=== PATIENT | female | born 1950 | race Caucasian/White ===

== ENCOUNTER 2020-02-16 12:49 | Outpatient (CLI) | payer MEDICARE, SELFPAY ==
[2020-02-16 13:10] VITALS: BP 112/73; PULSE 73; RESP 16; TEMP 36.6
[2020-02-16] MEDS: denosumab 60 mg SDV SUBCUT (13:15)
[2020-02-16 13:34] VITALS: BP 125/69; PULSE 69; RESP 16; TEMP 36.6
== END 2020-02-16 12:50 | disposition home or self-care (01) ==
LOC: RHEOACUTE 12:50
PROVIDERS: Family Provider Internal Medicine; PCP Internal Medicine; Visit Provider Internal Medicine Rheumatology
DX: M81.0 Age-related osteoporosis without current pathological fracture (principal)
CPT/HCPCS: 96372; J0897

== ENCOUNTER 2020-03-30 14:00 | Outpatient (CLI) | payer MEDICARE, SELFPAY ==
--- NOTE | 2020-03-30 14:08 | MM_ITS ---
WS: [id number] BILATERAL DIGITAL SCREENING MAMMOGRAPHY WITH CAD CLINICAL INFORMATION: SCREENING HISTORY: Screening mammogram. No current complaints. COMPARISON: 02/02/2019 and 01/21/2018 TECHNIQUE: Bilateral CC and MLO views. FINDINGS: Scattered fibroglandular densities bilaterally. No suspicious focal mass, asymmetry, calcifications, or architectural distortion. No evidence of malignancy. Punctate calcifications left breast. MM/[id number] IMPRESSION: BI-RADS: 2-Benign FOLLOW UP: 1 Year Follow-up Recommend return to annual screening mammography.
== END 2020-03-30 14:01 | disposition home or self-care (01) ==
PROVIDERS: PCP Internal Medicine; Visit Provider Internal Medicine
DX: Z12.31 Encounter for screening mammogram for malignant neoplasm of breast (principal)
CPT/HCPCS: 77067

== ENCOUNTER 2020-08-28 10:59 | Outpatient (CLI) | payer MEDICARE, SELFPAY ==
[2020-08-28 11:30] VITALS: BP 109/73; PULSE 71; RESP 16; TEMP 36.2; O2SAT 97
[2020-08-28] MEDS: denosumab 60 mg SDV SUBCUT (11:38)
[2020-08-28 11:40] VITALS: BMI 21.6
[2020-08-28 11:58] VITALS: BP 109/73; PULSE 70; RESP 16; O2SAT 98
== END 2020-08-28 11:00 | disposition home or self-care (01) ==
LOC: RHEOACUTE 11:00
PROVIDERS: PCP Internal Medicine; Visit Provider Internal Medicine Rheumatology
DX: M81.0 Age-related osteoporosis without current pathological fracture (principal)
CPT/HCPCS: 96372; J0897

== ENCOUNTER 2021-05-07 08:05 | Outpatient (CLI) | payer MEDICARE, SELFPAY ==
--- NOTE | 2021-05-07 08:11 | MM_ITS ---
WS: [id number] Exam: [id number] Date/Time of Exam: 05/07/2021 8:21 AM Reason For Exam: SCREENING VIEWS: MLO and CC views both breasts. Comparison made with prior exam of 01/08/2017, 01/21/2018, 02/02/2019, and 03/30/2020. Findings: There was no sign of mass, architectural distortion or suspicious calcification in either breast. Sc attered fibroglandular densities MM/[place] [id number] Impression: BI-RADS: 2-Benign FOLLOW-UP: 1 Year Follow-up This mammogram was also analyzed by the Computer Aided Detection System R2 [employer].
== END 2021-05-07 08:06 | disposition home or self-care (01) ==
PROVIDERS: PCP Internal Medicine; Visit Provider Internal Medicine
DX: Z12.31 Encounter for screening mammogram for malignant neoplasm of breast (principal)
CPT/HCPCS: 77067

== ENCOUNTER 2021-05-14 12:54 | Outpatient (CLI) | payer MEDICARE, SELFPAY ==
[2021-05-14 13:03] VITALS: BP 110/68; PULSE 74; RESP 18; TEMP 36.3; O2SAT 98
[2021-05-14] MEDS: denosumab 60 mg SDV SUBCUT (13:13)
== END 2021-05-14 12:55 | disposition home or self-care (01) ==
LOC: ONCMED 12:56
PROVIDERS: PCP Internal Medicine; Referring Provider Internal Medicine; Visit Provider Internal Medicine
DX: M81.0 Age-related osteoporosis without current pathological fracture (principal); Z79.899 Other long term (current) drug therapy
CPT/HCPCS: 96372; J0897

== ENCOUNTER 2021-11-25 11:58 | Outpatient (CLI) | payer MEDICARE, SELFPAY ==
[2021-11-25 12:17] VITALS: BP 113/75; PULSE 87; RESP 18; TEMP 36.9; O2SAT 98
[2021-11-25] MEDS: denosumab 60 mg SDV SUBCUT (12:25)
[2021-11-25 12:37] VITALS: BP 104/70; PULSE 88; RESP 18; TEMP 36.9; O2SAT 96
== END 2021-11-25 11:59 | disposition home or self-care (01) ==
PROVIDERS: PCP Internal Medicine; Referring Provider Internal Medicine; Visit Provider Internal Medicine
DX: M81.0 Age-related osteoporosis without current pathological fracture (principal)
CPT/HCPCS: 96372; J0897

== ENCOUNTER 2022-05-26 11:03 | Outpatient (CLI) | payer MEDICARE, SELFPAY ==
[2022-05-26 11:07] VITALS: BP 110/76; PULSE 87; RESP 18; TEMP 36.8; O2SAT 97
[2022-05-26] MEDS: denosumab 60 mg SDV SUBCUT (11:20)
[2022-05-26 11:26] VITALS: BP 113/74; PULSE 80; RESP 18; TEMP 36.5; O2SAT 95
== END 2022-05-26 11:04 | disposition home or self-care (01) ==
PROVIDERS: PCP Internal Medicine; Visit Provider Internal Medicine
DX: M81.0 Age-related osteoporosis without current pathological fracture (principal)
CPT/HCPCS: 96372; J0897

== ENCOUNTER 2022-07-04 11:48 | Outpatient (CLI) | payer MEDICARE, SELFPAY ==
--- NOTE | 2022-07-04 11:56 | MM_ITS ---
WS: [id number] BILATERAL SCREENING DIGITAL TOMOSYNTHESIS MAMMOGRAM WITH CAD HISTORY: SCREENING COMPARISON: 05/07/2021, 03/30/2020 and 02/02/2019 Bilateral CC and MLO views with tomosynthesis and synthetic mammography submitted. Computer aided det ection analyzed. Breast composition: There are scattered areas of fibroglandular density. No suspicious masses, microc alcifications or architectural distortion. Asymmetries within each breast are stable over multiple pr ior years. MM/[place] [id number] IMPRESSION: BI-RADS: 2-Benign FOLLOW UP: 1 Year Follow-up
== END 2022-07-04 11:49 | disposition home or self-care (01) ==
LOC: RAD 11:49
PROVIDERS: PCP Internal Medicine; Visit Provider Internal Medicine
DX: Z12.31 Encounter for screening mammogram for malignant neoplasm of breast (principal)
CPT/HCPCS: 77063; 77067

== ENCOUNTER 2022-07-18 11:00 | Outpatient (CLI) | payer MEDICARE, SELFPAY ==
--- NOTE | 2022-07-18 11:07 | MR_ITS ---
WS: [id number] MRI BRAIN WITHOUT CONTRAST HISTORY: NEW ONSET HEADACHE COMPARISON: None available. TECHNIQUE: Diffusion imaging, multiplanar T1, T2 and FLAIR imaging obtained. No evidence for acute infarct or hemorrhage. Suarez-white matter differentiation is normal. Mild atroph y. No prior infarct. Hyperintense T2 foci in the subcortical white matter predominantly in the frontal l obes. Ventricles and extra-axial spaces are normal. No inferior displacement of cerebellar tonsils. The sella turcica and pituitary gland are unremarkabl e. Dural venous sinuses and chitina of [place] demonstrate no abnormality on this unenhanced studies. Paranasal sinuses: Clear. Mastoid air cells: Normal. Calvarium and scalp: Intact. MR/MR head wo con* [id number] IMPRESSION: 1. Normal diffusion imaging. No evidence for an acute infarct. 2. Very mild atrophy and subcortical lesions in the frontal lobes. This can be seen with small vessel ischemic disease or migraines.
== END 2022-07-18 11:01 | disposition home or self-care (01) ==
LOC: RAD 11:03
PROVIDERS: PCP Internal Medicine; Visit Provider Internal Medicine
DX: R51.9 Headache, unspecified (principal); G31.89 Other specified degenerative diseases of nervous system
CPT/HCPCS: 70551

== ENCOUNTER 2022-12-02 08:50 | Outpatient (CLI) | payer MEDICARE, SELFPAY ==
[2022-12-02 09:01] VITALS: BP 127/75; PULSE 97; RESP 18; TEMP 36.3; O2SAT 98
[2022-12-02] MEDS: denosumab 60 mg SDV SUBCUT (09:07)
[2022-12-02 09:13] VITALS: BP 139/79; PULSE 90; RESP 18; TEMP 36.3; O2SAT 98
== END 2022-12-02 08:51 | disposition home or self-care (01) ==
LOC: ONCMED 08:51
PROVIDERS: PCP Internal Medicine; Visit Provider Internal Medicine
DX: M81.0 Age-related osteoporosis without current pathological fracture (principal)
CPT/HCPCS: 96372; J0897

== ENCOUNTER 2023-07-08 08:40 | Outpatient (CLI) | payer MEDICARE, SELFPAY ==
--- NOTE | 2023-07-08 08:47 | MM_ITS ---
WS: [id number] BILATERAL SCREENING DIGITAL TOMOSYNTHESIS MAMMOGRAM WITH CAD HISTORY: SCREENING COMPARISON: 07/04/2022, 05/07/2021 Bilateral CC and MLO views with tomosynthesis and synthetic mammography submitted. Computer aided det ection analyzed. Breast composition: There are scattered areas of fibroglandular density. No suspicious masses, microc alcifications or architectural distortion. Asymmetries in the anterior portion of each breast are sta ble. Benign calcification LEFT breast. IMPRESSION: MM/[place] [id number] BI-RADS: 2-Benign FOLLOW UP: 1 Year Follow-up
== END 2023-07-08 08:41 | disposition home or self-care (01) ==
PROVIDERS: PCP Internal Medicine; Visit Provider Internal Medicine
DX: Z12.31 Encounter for screening mammogram for malignant neoplasm of breast (principal)
CPT/HCPCS: 77063; 77067

== ENCOUNTER 2023-07-10 08:32 | Oncology outpatient (recurring) (ONCR) | payer MEDICARE, SELFPAY ==
[2023-07-10] MEDS: denosumab 60 mg SDV SUBCUT (08:46)
[2023-07-10 08:48] VITALS: BP 126/80; PULSE 84; RESP 16; TEMP 36.2; O2SAT 98
== END 2023-07-11 23:59 | disposition home or self-care (01) ==
PROVIDERS: PCP Internal Medicine; Visit Provider Internal Medicine
DX: M81.0 Age-related osteoporosis without current pathological fracture (principal)
CPT/HCPCS: 96372; J0897

== ENCOUNTER 2024-02-08 14:49 | Outpatient (CLI) | payer MEDICARE, SELFPAY ==
--- NOTE | 2024-02-08 14:56 | CTR_ITS ---
PROCEDURE INFORMATION: Exam: CT Abdomen And Pelvis With Contrast Exam date and time: 02/08/2024 3:47 PM Age: 73 years old Clinical indication: Prior surgery; Surgery date: 6+ months; Surgery type: Hysterectomy; Patient HX: Acute lower abdominal pain x 5 days with diarrhea today; Additional info: Acute abdominal pain, stat TECHNIQUE: Imaging protocol: Computed tomography of the abdomen and pelvis with contrast. Radiation optimization: All CT scans at this facility use at least one of these dose optimization techniques: automated exposure control; mA and/or kV adjustment per patient size (includes targeted exams where dose is matched to clinical indication); or iterative reconstruction. Contrast material: OMNIPAQUE 350; Contrast volume: 100 ml; Contrast route: INTRAVENOUS (IV); COMPARISON: No relevant prior studies available. RADIATION DOSE METRICS: Total DLP (mGy-cm): 344.5 FINDINGS: Lungs: Lung bases are clear. Diaphragm: There is a moderate size sliding-type hiatal hernia. Liver: The liver is normal. Gallbladder and bile ducts: The gallbladder is normal. There is no biliary dilation. Pancreas: There is mild atrophy of the pancreas. Spleen: The spleen is unremarkable. Adrenal glands: The adrenal glands are unremarkable. Kidneys and ureters: The kidneys are unremarkable. No hydronephrosis or stones. No ureteral dilation. Stomach and bowel: The stomach is nondistended, limiting assessment of wall thickness. The small bowel is nondilated. There is mild sigmoid colonic diverticulosis without evidence of diverticulitis. Appendix: The appendix is not visible. Intraperitoneal space: There is no free air or significant intraperitoneal free fluid. Vasculature: There may be hemodynamically significant stenosis of the celiac artery origin. There is moderate aortic atherosclerotic disease. The portal, splenic and superior mesenteric veins are patent. Lymph nodes: There is no lymphadenopathy in the retroperitoneum, mesentery, pelvis or inguinal regions. Urinary bladder: The urinary bladder is unremarkable. Reproductive: The uterus is absent. There is no adnexal mass or large cyst. Bones/joints: There is focal thoracolumbar kyphosis and inferior endplate compression deformity of T12 of indeterminate age. No acute features are seen. There is mild degenerative disease in the lower lumbar spine. The pelvis and hips are unremarkable. Soft tissues: The abdominal wall is intact. CT/CT abdomen pelvis w con* [id number] IMPRESSION: 1. No acute findings. 2. Incidental findings above.
[2024-02-08 15:44] LABS: Blood Urea Nitrogen 7 mg/dL (8-23)
[2024-02-08] MEDS: iohexol 350 mg/mL 500 mL Btl (per mL) IV (15:51)
== END 2024-02-08 14:50 | disposition home or self-care (01) ==
LOC: RAD 14:50
PROVIDERS: Radiology Diagnostic Radiology; PCP Internal Medicine; Visit Provider Internal Medicine
DX: R10.9 Unspecified abdominal pain (principal)
CPT/HCPCS: 74177; 82565; 84520; Q9967

== ENCOUNTER 2024-02-13 18:30 | Emergency (ER) | payer MEDICARE, SELFPAY ==
[2024-02-13 18:35] VITALS: BP 156/78; PULSE 90; RESP 17; TEMP 36.6; O2SAT 95; BMI 22.8
--- NOTE | 2024-02-13 20:16 | ED_ITS ---
HPI - Abdominal Pain 2 General: Chief Complaint: Abdominal Pain Stated Complaint: Bloody Diahrea Time Seen by Provider: 02/13/24 20:07 History of Present Illness: 73-year-old female who complains of a we ek of mucousy stool with blood, and diarrhea along with generalized abdominal pain. She was evidently seen by her PCP earlier in the week and had a CAT scan. She complains of continued pain and other symptoms. Associated Symptoms: Reports diarrhea, hematochezia and nausea; Denies fever(s), melena and vomiting Review of Systems 2 Const: Denies: fever(s) ENMT: Denies: throat pain Card: Denies: chest pain Resp: Denies: dyspnea GI: Reports: abdominal pain, nausea, diarrhea and hematochezia; Denies: vomiting or melena Physical Exam 2 Const: COMMON NORMALS: no acute distress GENERAL APPEARANCE: cooperative; not ill appearing and not frail appearing HENMT: COMMON NORMALS: normocephalic, atraumatic and Normal external nose present HEAD & SCALP: normocephalic and atraumatic FACE & SINUS: normal facial exam and face symmetric NOSE: Normal external nose present Eye: COMMON NORMALS: Equal, round and reactive pupils present and EOMs intact bilaterally PUPIL: Yes Equal, round and reactive pupils present Neck/C-Spine: GENERAL: Yes trachea midline Chest: CHEST: Yes Symmetrical chest wall rise Resp: COMMON NORMALS: normal respiratory effort, No retractions, No use of accessory muscles and clear to auscultation bilaterally AUSCULTATION: clear to auscultation bilaterally Cardio: COMMON NORMALS: regular rate and regular rhythm RATE: regular rate RHYTHM: regular rhythm GI: COMMON NORMALS: Normal to inspection, nondistended, normoactive bowel sounds present and Soft to palpation PALPATION: Yes Soft to palpation and Yes Tenderness to palpation present (GI) (generalized) Extremity: COMMON NORMALS: no pedal edema Neuro: AMAIRANI COMA SCALE: document GCS findings Amairani coma scale eye opening: Spontaneous Amairani coma scale verbal response: Orientated Mora coma scale motor response: Obey commands Amairani coma scale total score: 15 S ENSORY EXAM: Yes extremities (intact) Psych: COMMON NORMALS: speech normal SPEECH: Yes normal speech Skin: COMMON NORMALS: no rashes or lesions noted GENERAL SKIN EXAM: no rashes or lesions noted Course 2 Vital Signs: Vital signs: Vital Signs Temperature 97.8 F 02/13/24 18:35 Pulse Rate 73 02/14/24 00:32 Respiratory Rate 18 02/14/24 00:32 Blood Pressure 155/77 02/14/24 00:32 Pulse Oximetry 95 02/14/24 00:32 Oxygen Delivery Me thod Room Air 02/14/24 00:31 MDM - Abdominal Pain Medical Decision Making Vitals are stable period white blood cell count is 13. Hemoglobin is 14. Doubtful she has lost much blood. Lactic acid is 0.8. CRP, however, is 29. With history of blood, and elevated inflammatory markers, CT was ordered. It shows no acute findings. She may have antibiotic associated diarrhea, as she was placed on augmentin for a couple of days. We will place her on flagyl, steroids given here for inflammatory changes, and symptomatic treatment. She knows to return for worsening symptoms. Lab Data 02/13/24 20:31 02/13/24 21:06 Labs/Radiology: Radiology Impressions Abdomen/Pelvis CT 02/13/24 21:26 IMPRESSION: 1. No bowel obstruction or inflammatory process associated with the bowel. 2. No free air or significant free fluid in the abdomen or pelvis. 3. No evidence of appendicitis. Laboratory Results WBC 12.79 10^3/uL (3.29-11.43) H 02/13/24 20:31 RBC 5.02 10^6/uL (3.85-5.65) 02/13/24 20:31 Hgb 14.30 g/dL (11.27-16.99) 02/13/24 20:31 Hct 41.7 % (36-47) 02/13/24 20:31 MCV 83.1 fl (85-98) L 02/13/24 20:31 MCH 28.5 pg (27-33) 02/13/24 20:31 MCHC 34.3 g/dL (30-55) 02/13/24 20:31 RDW 12.1 % (12.1-15.1) 02/13/24 20:31 Plt Count 214 10^3/cmm (157-399) 02/13/24 20:31 MPV 10.0 fL (7.4-10.4) 02/13/24 20:31 Neut % (Auto) 79.0 % 02/13/24 20:31 Lymph % (Auto) 11.3 % 02/13/24 20:31 Swain % (Auto) 7.3 % 02/13/24 20: Eos % (Auto) 1.4 % 02/13/24 20:31 Baso % (Auto) 0.7 % 02/13/24 20:31 Neut # (Auto) 10.09 10^3/uL (1.8-7.7) H 02/13/24 20:31 Lymph # (Auto) 1.5 10^3/uL (0.8-4.8) 02/13/24 20: Swain # (Auto) 0.9 10^3/uL (0.2-0.9) 02/13/24 20: Eos # (Auto) 0.2 10^3/uL (0.0-0.8) 02/13/24 20: Baso # (Auto) 0.1 10^3/uL (0.0-0.1) 02/13/24 20: Nucleated RBC % (auto) 0 % 02/13/24 20: Nucleated RBCs # 0.0 /100WBC 02/13/24 20: Sodium 130 mmol/L (136-145) L 02/13/24 21:06 Potassium 4.0 mmol/L (3.5-5.1) 02/13/24 21:06 Chloride 95 mmol/L (98-107) L 02/13/24 21:06 Carbon Dioxide 25 mmol/L (22-29) 02/13/24 21:06 Anion Gap 14.0 (5-19) 02/13/24 21:06 BUN 9 mg/dL (8-23) 02/13/24 21:06 Creatinine 0.6 mg/dL (0.5-0.9) 02/13/24 21:06 GFR Calculation Not Reportable 02/13/24 21:06 Glucose 108 mg/dL (65-115) 02/13/24 21:06 Calculated Osmolality 269 mOsm/kg (285-295) L 02/13/24 21:06 Lactic Acid 0.8 mmol/L (0.5-2.2) 02/13/24 21:06 Calcium 9.3 mg/dL (8.5-10.5) 02/13/24 21:06 Total Bilirubin 0.3 mg/dL (0.15-1.2) 02/13/24 21:06 AST 18 U/L (0-32) 02/13/24 21:06 ALT 35 U/L (0-33) H 02/13/24 21:06 Alkaline Phosphatase 56 U/L (35-105) 02/13/24 21:06 C-Reactive Protein 28.9 mg/L (0.0-4.9) H 02/13/24 21:06 Total Protein 7.0 g/dL (6.6-8.7) 02/13/24 21:06 Albumin 4.1 g/dL (3.5-5.2) 02/13/24 21:06 Globulin 2.9 g/dL (1.3-4.6) 02/13/24 21:06 Lipase 26 U/L (13-60) 02/13/24 21:06 Urine Color Yellow (Yellow) 02/13/24 20:35 Urine Appearance Clear (CLEAR) 02/13/24 20:35 Urine pH 7 (5-7) 02/13/24 20:35 Ur Specific [place] 1.010 (1.005-1.030) 02/13/24 20:35 Urine Protein Neg (Negative) 02/13/24 20:35 Urine Glucose (UA) Norm (Normal) 02/13/24 20:35 Urine Ketones Negative (Negative) 02/13/24 20:35 Urine Blood Neg (Negative) 02/13/24 20:35 Urine Nitrate Negative (Negative) 02/13/24 20:35 Urine Bilirubin Neg (Negative) 02/13/24 20:35 Urine Urobilinogen Neg mg/dL (Negative) 02/13/24 20:35 Ur Leukocyte Esterase Negative (Negative) 02/13/24 20:35 All radiology interpretation(s) finalized by discharge Discharge Plan Discharge Patient Disposition: Home Clinical Impression: Antibiotic-associated diarrhea Condition: Stable Prescriptions: New metronidazole 500 mg tablet 500 mg PO Q8H 7 Days Qty: 21 0RF Discharge Orders: Discharge ED (Routine); Ordered 02/14/24 Ordered By: Boo Reagan Referrals: Dalotn Loomis DO [Primary Care Provider] - 1-3 days Patient Instructions: Diarrhea - Adult, Opioid Safety, Pain Management Activity Restrictions/Additional Instructions: Antibiotic as directed. Make sure you are drinking plenty of fluid. Imodium and fiber as we discussed. Return for any problems. See your doctor on Thursday as scheduled. Coding Level of Care Code ED Hospital Sales Representative for [facility]
[2024-02-13 20:42] LABS: Add Urine Microscopic? NO; Charge for UA Resulting for Rev
[2024-02-13 20:43] LABS: Basophils # 0.1 10^3/uL (0.0-0.1); Basophils % 0.7 %; Eosinophils # 0.2 10^3/uL (0.0-0.8); Eosinophils % 1.4 %; Hematocrit 41.7 % (36-47); Lymphocytes # 1.5 10^3/uL (0.8-4.8); Lymphocytes % 11.3 %; Mean Corpuscular HGB Conc 34.3 g/dL (30-55); Mean Corpuscular Hemoglobin 28.5 pg (27-33); Mean Corpuscular Volume 83.1 fl (85-98); Monocytes # 0.9 10^3/uL (0.2-0.9); Monocytes % 7.3 %; Neutrophils # 10.09 10^3/uL (1.8-7.7); Nucleated Red Blood Cells % 0 %; Platelet Count 214 10^3/cmm (157-399); Red Blood Count 5.02 10^6/uL (3.85-5.65); Red Cell Distribution Width 12.1 % (12.1-15.1); White Blood Count 12.79 10^3/uL (3.29-11.43)
[2024-02-13 20:45] LABS: Bilirubin Urine Neg (Negative); Blood Urine Neg (Negative); Glucose Urine UA Norm (Normal); Ketones Urine Negative (Negative); Leukocyte Esterase Urine Negative (Negative); Nitrate Urine Negative (Negative); Protein Urine Neg (Negative); Urine Appearance Clear (CLEAR); Urine Color Yellow (Yellow); Urobilinogen Urine Neg (Negative); pH Urine 7 (5-7)
[2024-02-13] MEDS: ketorolac 30 mg/mL INJ IVP (21:19)
[2024-02-13] MEDS: ondansetron 2 mg/ML SDV 2 mL 4 MG IVP (21:19)
[2024-02-13] MEDS: sodium chloride 0.9% 1,000 ML 999 ML IV (21:19)
--- NOTE | 2024-02-13 21:26 | CTR_ITS ---
PROCEDURE INFORMATION: Exam: CT Abdomen And Pelvis With Contrast Exam date and time: 02/13/2024 10:24 PM Age: 73 years old Clinical indication: Abdominal pain; Generalized; Prior surgery; Surgery date: 6+ months; Surgery type: Hysterectomy; Patient HX: Diffuse abd pain with hematic diarrhea; Additional info: Abd pain lower gi bleeding TECHNIQUE: Imaging protocol: Computed tomography of the abdomen and pelvis with contrast. Radiation optimization: All CT scans at this facility use at least one of these dose optimization techniques: automated exposure control; mA and/or kV adjustment per patient size (includes targeted exams where dose is matched to clinical indication); or iterative reconstruction. Contrast material: OMNI 350; Contrast volume: 100 ml; Contrast route: INTRAVENOUS (IV); COMPARISON: CT abdomen pelvis w con* [id number] 02/08/2024 3:47 PM RADIATION DOSE METRICS: Total DLP (mGy-cm): 529.5 FINDINGS: Diaphragm: Large hiatal hernia. Liver: Normal. No mass. Gallbladder and bile ducts: Normal. No calcified stones. No ductal dilation. Pancreas: Normal. No ductal dilation. Spleen: Normal. No splenomegaly. Adrenal glands: Normal. No mass. Kidneys and ureters: Normal. No hydronephrosis. Stomach and bowel: Unremarkable. No obstruction. No mucosal thickening. Appendix: No evidence of appendicitis. Intraperitoneal space: Unremarkable. No free air. No significant fluid collection. Vasculature: Unremarkable. No abdominal aortic aneurysm. Lymph nodes: Unremarkable. No enlarged lymph nodes. Urinary bladder: Unremarkable as visualized. Reproductive: Unremarkable as visualized. Bones/joints: Moderate anterior wedging of the T12 vertebral body. Soft tissues: Unremarkable. CT/CT abdomen pelvis w con* [id number] IMPRESSION: 1. No bowel obstruction or inflammatory process associated with the bowel. 2. No free air or significant free fluid in the abdomen or pelvis. 3. No evidence of appendicitis.
[2024-02-13 21:29] LABS: Lactic Sepsis W/Reflex 0.8 mmol/L (0.5-2.2)
[2024-02-13 21:30] LABS: Alanine Aminotransferase 35 U/L (0-33); Albumin Level 4.1 g/dL (3.5-5.2); Alkaline Phosphatase 56 U/L (35-105); Aspartate Amino Transferase 18 U/L (0-32); Blood Urea Nitrogen 9 mg/dL (8-23); C Reactive Protein 28.9 mg/L (0.0-4.9); Calcium 9.3 mg/dL (8.5-10.5); Carbon Dioxide 25 mmol/L (22-29); Chloride 95 mmol/L (98-107); Creatinine Clr Calc Pharmacy 63.8484; Globulin 2.9 g/dL (1.3-4.6); Glucose 108 mg/dL (65-115); Lipase 26 U/L (13-60); Osmolality Calculated 269 mOsm/kg (285-295); Sodium 130 mmol/L (136-145); Total Bilirubin 0.3 mg/dL (0.15-1.2)
[2024-02-13] MEDS: iohexol 350 mg/mL 500 mL Btl (per mL) IV (22:25)
[2024-02-13 23:55] VITALS: BP 135/67; PULSE 76; O2SAT 93
[2024-02-14] MEDS: metroNIDAZOLE 500 MG Tablet PO (00:28)
[2024-02-14] MEDS: ketorolac 30 mg/mL INJ 15 MG IVP (00:28)
[2024-02-14 00:31] VITALS: BP 155/77; PULSE 77; O2SAT 94
[2024-02-14 00:32] VITALS: BP 155/77; PULSE 73; RESP 18; O2SAT 95
== END 2024-02-14 00:33 | disposition home or self-care (01) ==
PROVIDERS: Emergency Provider Emergency Medicine; PCP Internal Medicine
DX: K52.1 Toxic gastroenteritis and colitis (principal); T36.95XA Adverse effect of unspecified systemic antibiotic, initial encounter
CPT/HCPCS: 36415; 74177; 80053; 81003; 83605; 83690; 85025; 86140; 96361; 96374; 96375; 96376; 99285; J1885; J2405; J7030; Q9967

== ENCOUNTER → 2024-04-08 10:22 | Outpatient (BNVA) | payer MEDICARE, SELFPAY | PROVIDERS: PCP Internal Medicine; Visit Provider Nurse Practitioner Family | DX: D48.5 Neoplasm of uncertain behavior of skin (principal); L81.4 Other melanin hyperpigmentation; Z71.89 Other specified counseling | CPT/HCPCS: 69100; 99203 ==

== ENCOUNTER 2024-07-28 12:50 | Outpatient (CLI) | payer MEDICARE, SELFPAY ==
--- NOTE | 2024-07-28 12:55 | MM_ITS ---
WS: [id number] BILATERAL SCREENING DIGITAL TOMOSYNTHESIS MAMMOGRAM WITH CAD HISTORY: SCREENING COMPARISON: 07/08/2023, 03/30/2020, 02/02/2019 Bilateral CC and MLO views with tomosynthesis and synthetic mammography submitted. Computer aided det ection analyzed. Breast composition: There are scattered areas of fibroglandular density. No suspicious masses, microc alcifications or architectural distortion. Bilateral asymmetries are stable over multiple prior years . MM/MM scr tomosynthesis [id number] IMPRESSION: BI-RADS: 2 - Benign. FOLLOW UP: 1 Year Follow-up
== END 2024-07-28 12:51 | disposition home or self-care (01) ==
LOC: RAD 12:51
PROVIDERS: PCP Internal Medicine; Visit Provider Internal Medicine
DX: Z12.31 Encounter for screening mammogram for malignant neoplasm of breast (principal); R92.323 Mammographic fibroglandular density, bilateral breasts; N64.89 Other specified disorders of breast
CPT/HCPCS: 77063; 77067

== ENCOUNTER → 2024-10-10 11:07 | Outpatient (BNVA) | payer MEDICARE, SELFPAY | PROVIDERS: PCP Internal Medicine; Visit Provider Nurse Practitioner Family | DX: H61.031 Chondritis of right external ear (principal); L81.4 Other melanin hyperpigmentation; D22.39 Melanocytic nevi of other parts of face; L82.0 Inflamed seborrheic keratosis | CPT/HCPCS: 17110; 99213 ==

== ENCOUNTER → 2024-12-15 08:52 | Outpatient (BNVA) | payer MEDICARE, SELFPAY | PROVIDERS: PCP Internal Medicine; Visit Provider Nurse Practitioner Family | DX: H61.031 Chondritis of right external ear (principal); R20.8 Other disturbances of skin sensation; R23.8 Other skin changes; L82.0 Inflamed seborrheic keratosis; L29.89 Other pruritus | CPT/HCPCS: 11900; 17110; 99214 ==

== ENCOUNTER → 2025-03-28 12:54 | Outpatient (BNVA) | payer MEDICARE, SELFPAY | PROVIDERS: PCP Internal Medicine; Visit Provider Nurse Practitioner Family | DX: L82.1 Other seborrheic keratosis (principal); L81.4 Other melanin hyperpigmentation; D23.9 Other benign neoplasm of skin, unspecified; L57.8 Other skin changes due to chronic exposure to nonionizing radiation; D48.5 Neoplasm of uncertain behavior of skin; R20.8 Other disturbances of skin sensation; R23.8 Other skin changes; L57.0 Actinic keratosis | CPT/HCPCS: 17000; 69100; 99213 ==

== ENCOUNTER 2025-08-02 12:44 | Outpatient (CLI) | payer MEDICARE, SELFPAY ==
--- NOTE | 2025-08-02 12:49 | MM_ITS ---
WS: [id number] BILATERAL 3D TOMOSYNTHESIS DIGITAL SCREENING MAMMOGRAPHY WITH CAD CLINICAL INFORMATION: SCREENING HISTORY: Screening mammogram. No current complaints. COMPARISON: 2023 TECHNIQUE: Bilateral CC and MLO views. FINDINGS: Scattered fibroglandular densities bilaterally. No suspicious focal mass, asymmetry, calcifications, or architectural distortion. No evidence of malignancy. Vascular calcification. Benign calcifications LEFT breast. MM/MM scr BI tomosynthesis [id number] IMPRESSION: DENSITY: There are scattered areas of fibroglandular density. BI-RADS: 2 - Benign FOLLOW UP: 1 Year Follow-up Recommend return to annual screening mammography.
== END 2025-08-02 12:45 | disposition home or self-care (01) ==
LOC: RAD 12:45
PROVIDERS: PCP Internal Medicine; Visit Provider Electrodiagnostic Medicine
DX: Z12.31 Encounter for screening mammogram for malignant neoplasm of breast (principal); R92.323 Mammographic fibroglandular density, bilateral breasts; R92.1 Mammographic calcification found on diagnostic imaging of breast
CPT/HCPCS: 77063; 77067